=== PATIENT | female | born 1980 | race Caucasian/White ===

== ENCOUNTER 2022-06-29 14:25 | Outpatient (CLI) | payer BC, SELFPAY ==
--- NOTE | 2022-06-29 14:40 | CRLHL7_ITS ---
For Patients: As a result of the Cures Act, medical imaging exams and procedure reports are released immediately into your electronic medical record. You may view this report before your referring provider. If you have questions, please contact your health care provider. BILATERAL SCREENING MAMMOGRAM WITH COMPUTER-AIDED DETECTION AND TOMOSYNTHESIS TECHNIQUE: CC and MLO views were obtained. These mammographic images have been obtained using full-field digital technique. These mammographic images were interpreted with the benefit of computer-aided detection. Breast Tomosynthesis was used in this interpretation. COMPARISON FILM: 05/16/21, 03/08/20. FINDINGS: The breasts are extremely dense, which lowers the sensitivity of mammography IMPRESSION: There is no radiographic evidence for malignancy. ASSESSMENT: BI-RADS Category 1: Negative RECOMMENDATION: Routine screening mammogram in 1 year. A lay language report of this examination will be provided to the patient. David Armenta M.D. Diagnostic Radiologist [email or web address] Transcribed: 1:25 p.mIdania yang/Dictated by: David Armenta MD @ 07/02/2022 12:22:00 PM (Electronically Signed)
== END 2022-06-29 14:26 | disposition home or self-care (01) ==
LOC: MAMMO 14:29
PROVIDERS: PCP Family Medicine; Visit Provider Physician Assistant
DX: Z12.31 Encounter for screening mammogram for malignant neoplasm of breast (principal); R92.2 Inconclusive mammogram
CPT/HCPCS: 77063; 77067

== ENCOUNTER 2023-03-20 13:46 | Outpatient (CLI) | payer BC, SELFPAY ==
--- NOTE | 2023-03-20 14:00 | CRLHL7_ITS ---
For Patients: As a result of the Century Cures Act, medical imaging exams and procedure reports are released immediately into your electronic medical record. You may view this report before your referring provider. If you have questions, please contact your health care provider. INDICATION: EXCESSIVE AND FREQUENT MENSES, PELVIC PAIN COMPARISON: none TECHNIQUE: 2D patterson scale and color Doppler images were acquired of the pelvis using a transabdominal and transvaginal approach. FINDINGS: Sonographic images demonstrate a normal size and smooth outer contour of the uterus. Uterus measures 9.7 cm in length by 4.7 cm in AP diameter by 6.4 cm in transverse dimension. The myometrium has a normal uniform echotexture. The endometrial lining measures 9 mm in composite thickness. Hyperechoic focus within the endometrium measuring 6 x 3 x 9 millimeters. The right ovary measures 3.1 x 1.8 x 2.7 cm in size and the left ovary measures 4.1 x 1.4 x 2.9 cm. The ovaries demonstrate normal arterial and venous blood flow on color Doppler analysis. There are no suspicious fluid collections within the cul-de-sac. IMPRESSION: Endometrial thickness 9 millimeters. Endometrial polyp suspected measuring 6 x 3 x 9 millimeters. No endometrial fluid or uterine fibroid. Dictated by David Armenta MD @ 03/20/2023 2:53:16 PM (Electronically Signed)
== END 2023-03-20 13:47 | disposition home or self-care (01) ==
LOC: US 13:47
PROVIDERS: PCP Family Medicine; Visit Provider Physician Assistant
DX: N92.0 Excessive and frequent menstruation with regular cycle (principal); R93.89 Abnormal findings on diagnostic imaging of other specified body structures; R10.2 Pelvic and perineal pain
CPT/HCPCS: 76830; 76856; 93976

== ENCOUNTER 2023-07-02 11:16 | Outpatient (CLI) | payer BC, SELFPAY ==
--- NOTE | 2023-07-02 11:30 | MM_ITS ---
Patient: MORELIA CAMPUZANO Facility:?[facility] Patient ID:?[id number] Site Patient ID:?[id number]. Site :?1980 Study:?XRay-Breast Bilateral 3D W/CAD-07/02/2023 11:43:58 AM Ordering Physician:Armen lopez Final Report: BILATERAL DIGITAL SCREENING MAMMOGRAM WITH TOMOSYNTHESIS AND COMPUTER-AIDED DETECTION CLINICAL HISTORY: Routine screening exam. COMPARISON: 05/22/2021, 05/16/2021, 03/08/2020. TECHNIQUE: Digital mammogram in CC and MLO projections including computer-aided detection (CAD). Tomosynthesis utilized. BREAST COMPOSITION: The breasts are heterogeneously dense, which may obscure small masses. FINDINGS: RIGHT Breast: No suspicious findings. LEFT Breast: Nodular density retroareolar plane LEFT breast 3 cm from the nipple, MLO view only. IMPRESSION: LEFT breast asymmetry/mass. RECOMMENDATIONS: LEFT breast ultrasound recommended. Probable fibrocystic change. BI-RADS Category 0: Incomplete: Need Additional Imaging Evaluation and/or Prior Mammograms for Comparison [facility] will contact the patient for follow-up. A lay language report of this examination will be provided to the patient. Dictated by David Armenta MD @ 07/03/2023 12:35:52 PM trey/Dictated by: David Armenta MD @ 07/03/2023 12:35:00 PM Signed by:?David Armenta MD @07/03/2023 2:43:03 PM (Electronic Signature)
== END 2023-07-02 11:17 | disposition home or self-care (01) ==
PROVIDERS: PCP Family Medicine; Visit Provider Family Medicine
DX: Z12.31 Encounter for screening mammogram for malignant neoplasm of breast (principal); N63.20 Unspecified lump in the left breast, unspecified quadrant
CPT/HCPCS: 77063; 77067

== ENCOUNTER 2023-07-22 09:06 | Outpatient (CLI) | payer BC, SELFPAY ==
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
--- NOTE | 2023-07-22 09:15 | US_ITS ---
Patient: MORELIA CAMPUZANO Facility:?[facility] Patient ID:?[id number] Site Patient ID:?[id number]. Site :?1980 Study:?US-Breast Left DR GREEN TO READ-07/22/2023 9:25:15 AM Ordering Physician:RIVAS PELAYO Final Report: LEFT BREAST ULTRASOUND CLINICAL HISTORY: LEFT breast mass/asymmetry. COMPARISON: 07/02/2023. TECHNIQUE: Real-time ultrasound imaging of LEFT breast with imaging documentation. FINDINGS: Targeted sonogram LEFT breast 3 o`clock 2 cm from the nipple performed. In this location, there is a simple anechoic cyst with increased through-transmission measuring 8 x 7 x 8 millimeters. No solid component. No abnormal vascularity. IMPRESSION: Benign cyst LEFT breast 3 o`clock 2 cm from the nipple measuring 8 x 7 x 8 millimeters. No suspicious findings. RECOMMENDATIONS: Annual BILATERAL screening mammography. Results and recommendations were discussed with the patient at the time of the exam. BI-RADS Category 2: Benign Dictated by David Green MD @ 07/22/2023 11:16:42 AM jj/Dictated by: David Green MD @ 07/22/2023 11:16:00 AM Signed by:?David Green MD @07/22/2023 12:00:35 PM (Electronic Signature)
== END 2023-07-22 09:07 | disposition home or self-care (01) ==
LOC: US 09:07
PROVIDERS: PCP Family Medicine; Visit Provider Obstetrics & Gynecology
DX: N63.20 Unspecified lump in the left breast, unspecified quadrant (principal); N60.02 Solitary cyst of left breast; R92.8 Other abnormal and inconclusive findings on diagnostic imaging of breast
CPT/HCPCS: 76642

== ENCOUNTER 2024-04-10 09:16 | Outpatient (CLI) | payer BC, SELFPAY | END 2024-04-10 09:17 | disposition home or self-care (01) | LOC: NFLDREF 04-15 23:29 | PROVIDERS: PCP Family Medicine; Referring Provider Family Medicine; Visit Provider Physician Assistant | DX: Z13.220 Encounter for screening for lipoid disorders (principal); Z13.1 Encounter for screening for diabetes mellitus | CPT/HCPCS: 80061; 82947 ==

== ENCOUNTER 2024-07-16 13:29 | Outpatient (CLI) | payer BC, SELFPAY ==
--- NOTE | 2024-07-16 13:40 | CRLHL7_ITS ---
For Patients: As a result of the Century Cures Act, medical imaging exams and procedure reports are released immediately into your electronic medical record. You may view this report before your referring provider. If you have questions, please contact your health care provider. BILATERAL SCREENING MAMMOGRAM WITH COMPUTER-AIDED DETECTION AND TOMOSYNTHESIS TECHNIQUE: CC and MLO views were obtained. These mammographic images have been obtained using full-field digital technique. These mammographic images were interpreted with the benefit of computer-aided detection. Breast Tomosynthesis was used in this interpretation. COMPARISON FILM: 07/02/23, 06/29/22, 05/16/21. FINDINGS: The breasts are heterogeneously dense, which may obscure small masses. IMPRESSION: There is no radiographic evidence for malignancy. ASSESSMENT: BI-RADS Category 2: Benign RECOMMENDATION: Routine screening mammogram in 1 year. A lay language report of this examination will be provided to the patient. David Armenta M.D. Diagnostic Radiologist [email or web address] SP/Dictated by: David Armenta MD @ 07/17/2024 12:48:00 PM (Electronically Signed)
== END 2024-07-16 13:30 | disposition home or self-care (01) ==
LOC: MAMMO 13:30
PROVIDERS: PCP Family Medicine; Visit Provider Physician Assistant
DX: Z12.31 Encounter for screening mammogram for malignant neoplasm of breast (principal); R92.333 Mammographic heterogeneous density, bilateral breasts
CPT/HCPCS: 77063; 77067